=== PATIENT | female | born 1965 | race Caucasian/White ===

== ENCOUNTER 2018-02-01 13:34 | Outpatient (CLI) | payer BC, OTHER ==
--- NOTE | 2018-02-01 16:26 | MRI ---
MR ANGIOGRAPHY OF HEAD: 02/01/18 [id number] MR angiography performed of the brain. INDICATIONS: Pulsatile tinnitus. FINDINGS: The intracranial internal carotid arteries appear unremarkable. Anterior cerebral arteries, middle ce rebral arteries and posterior cerebral arteries are unremarkable. Basilar artery is unremarkable. The re is no evidence of aneurysm. There is no evidence of focal stenosis or occlusion. MR venogram was obtained. There is symmetric loss of signal in the mid transverse sinuses. The dural venous sinuses are otherwise patent. IMPRESSION: Unremarkable MR angiography exam. POS: [facility]
--- NOTE | 2018-02-01 16:30 | MRI ---
MRI OF BRAIN WITH AND WITHOUT CONTRAST: 02/01/18 Multiplanar and multisequential imaging of the brain obtained. Postcontrast images obtained with 17 m L of Multihance IV. Internal auditory canal protocol is followed. INDICATIONS: Pulsatile tinnitus left ear. FINDINGS: Ventricles have normal size and position. There is no evidence of restricted diffusion. No significan t white matter abnormality. No mass or edema. Seventh and eighth cranial nerves are well seen. There is no evidence of abnormal enhancement in eith er internal auditory canal. No evidence of acoustic schwannoma. No other cerebellar pontine angle mas s lesion identified. The visualized paranasal sinuses and mastoids appear clear. IMPRESSION: Unremarkable MRI of brain and internal auditory canals. POS: [facility]
== END 2018-02-01 13:35 | disposition home or self-care (01) ==
LOC: MRI 13:34
PROVIDERS: ATTEND Specialist
DX: H93.A9 Pulsatile tinnitus, unspecified ear (principal)
CPT/HCPCS: 70544; 70553